=== PATIENT | female | born 1955 | race Caucasian/White ===

== ENCOUNTER 2016-10-24 09:52 | Emergency (ER) | payer SELFPAY ==
[~2016-10-24] VITALS: Ht 160 cm; Wt 70.0 kg
[~2016-10-24 09:52] MED LIST: TYLE500T PO; Z.0.NO CURRENT MEDS
[2016-10-24 09:54] VITALS: BP 158/97; PULSE 95; RESP 12; TEMP 98; O2SAT 98
--- NOTE | 2016-10-24 10:43 | PD ---
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 She is concerned that the stingers are stuck in her skin and her causing her headaches. She denies history of headaches prior to being stung by the bees. Describes her headache as a pressure. Location is bilateral. Rates headache 5/10. Headaches are relieved with aspirin. She took aspirin yesterday for her headache and it went away. Woke up this morning with a headache again. Says her headaches are aggravated by the multiple bee stings and other stings from bugs that she's been stung by at work. Denies focal deficits or weakness. Denies change in vision. Denies change in mentation, slurred speech, confusion, disorientation. Denies fever, chills, nausea, vomiting. Denies allergies. Denies anticoagulants. Denies significant past medical history. No other modifying factors or associated signs and symptoms. PFSH Past Medical History Medical History: Denies Significant Hx Diabetes: No Diminished Hearing: No Immunizations Current: No Tetanus Vaccination: < 5 Years ?: Not Past Surgical History Abdominal Surgery: Yes (ADHESIONS REMOVED BY LAP) Cholecystectomy: Yes Hysterectomy: Yes (PARTIAL) Social History Alcohol Use: No Tobacco Use: No Substance Use: No Allergies-Medications (Allergen,Severity, Reaction): Coded Allergies: No Known Allergies (Verified , 10/24/16) Reported Meds & Prescriptions Reported Meds & Active Scripts Active Ibuprofen 800 Mg Tab 800 Mg PO Q6HR PRN Review of Systems Except as stated in HPI: all other systems reviewed are Neg Physical Exam Narrative GENERAL: Well-nourished, well-developed female patient, in no acute distress SKIN: Warm and dry. HEAD: Atraumatic. Normocephalic. No facial droop noted. Tongue midline. EYES: Pupils equal and round at 3 mm with brisk reaction. No scleral icterus. No injection or drainage. PERRLA. EOMI. ENT: Mucosa pink and moist. Airway patent. NECK: Trachea midline. No lymphadenopathy. CARDIOVASCULAR: Regular rate and rhythm. No murmur appreciated. RESPIRATORY: No accessory muscle use. Clear to auscultation. Breath sounds equal bilaterally. GASTROINTESTINAL: Abdomen soft, non-tender, nondistended. Hepatic and splenic margins not palpable. Bowel sounds are active 4 quadrants. MUSCULOSKELETAL: No obvious deformities. No clubbing. No cyanosis. No edema. NEUROLOGICAL: Awake and alert. Oriented 3. No obvious cranial nerve deficits. Motor grossly within normal limits. Normal speech. No ataxia. No mid -line drift. Normal nose to finger test. Moves all extremities. 5/5 strength to all extremities. PSYCHIATRIC: Appropriate mood and affect; insight and judgment normal. Data Data Last Documented VS Vital Signs Date Time Temp Pulse Resp B/P Pulse Ox O2 Delivery O2 Flow Rate FiO2 10/24/16 09:54 98.0 95 12 158/[address] Brain W/O Iv Contrast(Rout) (10/24/16 ) Ibuprofen (Motrin) (10/24/16 12:15) MDM Medical Decision Making Medical Screen Exam Complete: Yes Emergency Medical Condition: Yes Medical Record Reviewed: Yes Differential Diagnosis Acute headache, medical clearance, tension headache Narrative Course 60-year-old female with intermittent acute headaches for the past few months. Apparently the onset after being stung by 2 bees to her restorationism areas. Neuro exam is unremarkable. Physical exam is unremarkable. Patient reports the headaches are relieved when she takes aspirin. Denies anticoagulants. CT head ordered. 1205: CT head with no acute findings. Ibuprofen administered in the ER. Ibuprofen prescribed for home. Patient is medically cleared and stable for discharge. Discussed reasons to return to the emergency department. Instructed patient to follow up with primary care provider. Patient agrees with treatment plan. The patients vital signs are stable and the patient is stable for outpatient follow-up and treatment. Patient discharged home, stable and in no acute distress. Diagnosis Primary Impression: Acute headache Qualified Code: R51 - Acute nonintractable headache, unspecified headache type Referrals: Primary Care Physician Patient Instructions: Acute Headache (ED), General Instructions Additional Instructions: Ibuprofen or Tylenol as directed and as needed to reduce headache Get plenty of rest: do not over sleep rest and relax in a dark, quiet room as needed Place an ice pack on the back of her neck to reduce head pain as needed Keep a headache diary of what triggers her headaches and what treatment is most effective Avoid identifiable triggers Avoid smoking, alcohol and caffeine consumption Reduce stress Follow-up with primary care provider Follow-up with neurology as needed Return immediately to the emergency department with worsening symptoms Med/Other Pt SpecificInfo: Prescription(s) given Scripts Ibuprofen 800 Mg [id number] Mg PO Q6HR PRN (PAIN) #30 TAB Ref 0 Prov:Rivka Stokes 10/24/16 Disposition: 01 DISCHARGE HOME Condition: Stable Rivka Stokes Oct 24, 2016 10:43
--- NOTE | 2016-10-24 11:37 | RADRPT ---
EXAM DATE/TIME: 10/24/2016 11:10 [facility] COMPARISON: No previous studies available for comparison. INDICATIONS : Worsening headaches over past 10 months. RADIATION DOSE: 33.74 CTDIvol (mGy) MEDICAL HISTORY : None SURGICAL HISTORY : Cholecystectomy. Hysterectomy. ENCOUNTER: Initial ACUITY: 7 - 11 months PAIN SCALE: 5/10 LOCATION: cranial TECHNIQUE: Multiple contiguous axial images were obtained of the head. Using automated exposure control and adj ustment of the mA and/or kV according to patient size, radiation dose was kept as low as reasonably a chievable to obtain optimal diagnostic quality images. FINDINGS: CEREBRUM: The ventricles are normal for age. No evidence of midline shift, mass lesion, hemorrhage or acute in farction. No extra-axial fluid collections are seen. POSTERIOR FOSSA: The cerebellum and brainstem are intact. The 4th ventricle is midline. The cerebellopontine angle i s unremarkable. EXTRACRANIAL: The visualized portion of the orbits is intact. SKULL: The calvaria is intact. No evidence of skull fracture. CONCLUSION: No acute disease. Albaro Morgan MD on October 24, 2016 at 11:35 Board Certified Radiologist. This report was verified electronically.
[2016-10-24] MEDS ORDERED: IBUP800T23 PO (12:02)
[2016-10-24] MEDS ORDERED: IBUPROFEN 800 MG TAB PO ONE (12:15)
== END 2016-10-24 13:03 | disposition home or self-care (01) ==
LOC: NEPB 09:52
DX: R51 Headache (principal)
CPT/HCPCS: 70450

== ENCOUNTER 2017-11-17 15:36 | Emergency (ER) | payer SELFPAY ==
[~2017-11-17] VITALS: Ht 160 cm; Wt 67.0 kg
[~2017-11-17 15:36] MED LIST changes: +IBUP1TAB7 PO; -TYLE500T PO; -Z.0.NO CURRENT MEDS
[2017-11-17 15:40] VITALS: BP 142/87; PULSE 103; RESP 16; TEMP 97.5; O2SAT 98
[2017-11-17] MEDS ORDERED: ACETAMINOPHEN/HYDROcodone 325 MG/5 MG TAB PO ONE (16:00)
--- NOTE | 2017-11-17 16:00 | PD ---
HPI Chief Complaint: Fall Time Seen by Provider: 15:52 Travel History International Travel<30 days: No Contact w/Intl Traveler<30days: No Traveled to known affect area: No History of Present Illness HPI 62-year-old female presents to the emergency department for evaluation after a fall that occurred just prior to arrival. Patient states that she was stepping up a step at work when she fell backwards hitting the concrete. Patient states she did hit her head, but denies any LOC. She reports low back pain, right elbow abrasion and pain. Patient reports no chronic medical problems and takes no prescribed medications. Current pain is 9/10, aching without radiation. Movement exacerbates pain. Moderate severity. Patient does not believe her tetanus immunization is up-to-date. [facility] Past Medical History Medical History: Denies Significant Hx Diabetes: No Diminished Hearing: No Immunizations Current: No Tetanus Vaccination: > 5 Years Influenza Vaccination: No ?: Not Past Surgical History Abdominal Surgery: Yes (ADHESIONS REMOVED BY LAP) Cholecystectomy: Yes Hysterectomy: Yes (PARTIAL) Social History Alcohol Use: No Tobacco Use: No Substance Use: No Allergies-Medications (Allergen,Severity, Reaction): Coded Allergies: No Known Allergies (Verified Adverse Reaction, Unknown, 11/17/17) Reported Meds & Prescriptions Reported Meds & Active Scripts Active No Active Prescriptions or Reported Medications Review of Systems Except as stated in HPI: all other systems reviewed are Neg Physical Exam Narrative GENERAL: Well-nourished, well-developed female patient, ambulatory. Afebrile. SKIN: Focused skin assessment warm/dry. Patient has abrasion to her right posterior elbow. ENT: Mucosa pink and moist. No erythema or exudates. No uvular edema. No uvular , palatal, or tonsillar deviation. Airway patent. Nasal turbinates appear normal without nasal blood, purulent drainage or septal hematoma. Bilateral tympanic membranes are clear without erythema or perforation. HEAD: Normocephalic. EYES: No scleral icterus. No injection or drainage. NECK: Supple, trachea midline. No JVD or lymphadenopathy. CARDIOVASCULAR: Regular rate and rhythm without murmurs, gallops, or rubs. RESPIRATORY: Breath sounds equal bilaterally. No accessory muscle use. Lungs sounds are clear to auscultation. GASTROINTESTINAL: Abdomen soft, non-tender, nondistended. MUSCULOSKELETAL: No cyanosis, or edema. BACK: Nontender without obvious deformity. No CVA tenderness. Patient has tenderness to palpation over midline lumbar spine. Data Data Last Documented VS Vital Signs Date Time Temp Pulse Resp B/P (MAP) Pulse Ox O2 Delivery O2 Flow Rate FiO2 11/17/17 15:40 97.5 103 16 142/87 (105) [address] Brain W/O Iv Contrast(Rout) (11/17/17 ) Ct Cerv Spine W/O Contrast (11/17/17 ) Elbow, Complete (4 Vws) (11/17/17 ) Spine, Lumbar - Ltd (Ap & Lat) (11/17/17 ) Acetamin-Hydrocod 325-5 Mg ([place] 5-325 (11/17/17 16:00) Tetanus/Diphtheria Tox Adult (Tetanus/Di (11/17/17 17:30) Ct Lumb Spine W/O Contrast (11/17/17 ) MDM Medical Decision Making Medical Screen Exam Complete: Yes Emergency Medical Condition: Yes Medical Record Reviewed: Yes Interpretation(s) x-ray right elbow CONCLUSION: Unremarkable examination of the right elbow. X-ray lumbar spine CONCLUSION: Degenerative disc disease L4-5 and facet arthritic changes at L5-S1 and L4-5. The cavity and mildly a tear wedging superior vertebral endplate of L1 which may be remote. Correlation with clinical history recommended. In the appropriate clinical situation this could be further evaluated with CT scan Ct brain CONCLUSION: 1. Midline high occipital scalp thickening; no skull fracture seen. 2. No acute findings in the brain. CT cervical spine CONCLUSION: Reversal of the upper cervical lordosis with multilevel listhesis. Moderate severity discogenic degenerative changes C4-7. No fracture seen. May consider performing flexion and extension views to assess stability of the cervical alignment. CT lumbar spine - CONCLUSION: 1. Multiple sclerotic lesions involving the right pedicle of L1, left sacral ala , and left medial iliac bone. Cannot exclude osteoblastic metastatic disease. May consider performing an outpatient whole-body bone scan. 2. Compression deformity of the L1 vertebral body and prominent Schmorl's node superior endplate without evidence of acute fracture line. 3. Moderate severity facet joint hypertrophy at L4-5 without evidence of pars defect. Differential Diagnosis Closed head injury versus intracranial abnormality versus cervical strain versus fracture versus elbow abrasion versus contusion versus fracture Narrative Course 62-year-old female presents to the emergency department for evaluation after a fall that occurred just prior to arrival. CT of the brain and cervical spine are ordered and pending. X-ray of the lumbar spine, right elbow are ordered and pending. Patient is given [place] 5/325 mg by mouth for pain. CT of the brain shows no acute findings. Ct of the cervical spine shows no acute fracture. X-ray of the lumbar spine shows degenerative disc disease, possible superior vertebral endplate of L1 fracture. X-ray of the right elbow is unremarkable. CT of the lumbar spine is ordered and pending due to abnormal x-ray. CT lumbar spine shows multiple sclerotic lesions involving the right pedicle of L1, left sacral ala, and left medial iliac bone, cannot exclude osteoblastic metastatic disease, recommends outpatient whole-body bone scan. Compression deformity of L1 vertebral body and prominent Schmorl's node superior end plate without evidence of acute fracture line. Moderate severity facet joint hypertrophy at L4 to 5 without evidence of pars defect. I discussed the findings with the patient gave her copy of the report. She is to follow-up with the [facility] [[email or web address]] as she does not have insurance at this time. She verbalizes agreement. She'll be provided TLSO brace for compression fracture. Patient will be discharged a short-term prescription for [place] for pain. Diagnosis Primary Impression: Compression fracture of L1 lumbar vertebra Qualified Codes: S32.010A - Wedge compression fracture of first lumbar vertebra, initial encounter for closed fracture Additional Impression: Closed head injury Qualified Codes: S09.90XA - Unspecified injury of head, initial encounter Referrals: [facility] 2 days Patient Instructions: General Instructions, Head Injury (ED), Vertebral Compression Fracture (ED) Additional Instructions: Clean abrasion to right elbow twice daily with soap and water and apply over-the -counter antibiotic ointment. Keep clean and dry. Follow-up with the [facility] [[email or web address]] regarding your abnormal CT scan of the lumbar spine. Call on Sunday to make an appointment. Wear TLSO brace. Take [place] as directed as needed for pain. Caution this can make you drowsy so do not drive after taking. Return to the emergency department for any acute worsening of symptoms. Med/Other Pt SpecificInfo: Prescription(s) given Scripts Hydrocodone-Acetaminophen ([place]) 5 Mg-325 Mg Tab 1 TAB PO Q6H Y for PAIN, #12 TAB 0 Refills Prov: Radha eYpez 11/17/17 Disposition: 01 DISCHARGE HOME Condition: Stable Radha Yepez Nov 17, 2017 16:00
--- NOTE | 2017-11-17 17:29 | RADRPT ---
EXAM DATE/TIME: 11/17/2017 17:05 [facility] COMPARISON: No previous studies available for comparison. INDICATIONS : Fell, has right elbow pain MEDICAL HISTORY : None. SURGICAL HISTORY : None. ENCOUNTER: Initial ACUITY: 1 day PAIN SCORE: 7/10 LOCATION: Right elbow FINDINGS: Multiple view examination of the right elbow demonstrates no soft tissue swelling, joint effusion, or fracture. The osseous structures are in normal alignment. Bony mineralization is normal. CONCLUSION: Unremarkable examination of the right elbow. Aidan Brambila MD on November 17, 2017 at 17:26 Board Certified Radiologist. This report was verified electronically.
[2017-11-17] MEDS ORDERED: TETANUS/DIPHTHERIA TOXOID ADULT 0.5 ML VIAL IM ONE (17:30)
--- NOTE | 2017-11-17 17:32 | RADRPT ---
EXAM DATE/TIME: 11/17/2017 17:11 [facility] COMPARISON: No previous studies available for comparison. INDICATIONS : Fell, has low back pain MEDICAL HISTORY : None. SURGICAL HISTORY : None. ENCOUNTER: Initial ACUITY: 1 day PAIN SCORE: 5/10 LOCATION: Bilateral low back FINDINGS: There are vascular calcifications in the aorta without aneurysm formation clips in the right upper qu adrant prior cholecystectomy. Lumbar spine reveals normal alignment with narrowing of the L4-5 disc s pace consistent with degenerative disc disease and facet arthritic changes L4-5 and L5-S1. There is c oncavity of superior vertebral endplate and mild anterior wedging of L1 without cortical break identi fied and this is primarily right sided. This may represent a remote compression. CONCLUSION: Degenerative disc disease L4-5 and facet arthritic changes at L5-S1 and L4-5. The cavity and mildly a tear wedging superior vertebral endplate of L1 which may be remote. Correlation with clinical histor y recommended. In the appropriate clinical situation this could be further evaluated with CT scan Aidan Brambila MD on November 17, 2017 at 17:27 Board Certified Radiologist. This report was verified electronically.
--- NOTE | 2017-11-17 18:02 | RADRPT ---
EXAM DATE/TIME: 11/17/2017 17:32 [facility] COMPARISON: CT BRAIN W/O CONTRAST, October 24, 2016, 11:10. INDICATIONS : Tripped and fell. hit the back of her head. RADIATION DOSE: 50.19 CTDIvol (mGy) MEDICAL HISTORY : None SURGICAL HISTORY : Cholecystectomy. Laperoscopy, Partial hysterectomy. ENCOUNTER: Initial ACUITY: 1 day PAIN SCALE: 6/10 LOCATION: occipital TECHNIQUE: Multiple contiguous axial images were obtained of the head. Using automated exposure control and adj ustment of the mA and/or kV according to patient size, radiation dose was kept as low as reasonably a chievable to obtain optimal diagnostic quality images. DICOM format image data is available electro nically for review and comparison. FINDINGS: CEREBRUM: The ventricles are normal for age. No evidence of midline shift, mass lesion, hemorrhage or acute in farction. Physiologic calcification in the basal ganglia. No extra-axial fluid collections are seen . POSTERIOR FOSSA: The cerebellum and brainstem are intact. The 4th ventricle is midline. The cerebellopontine angle i s unremarkable. EXTRACRANIAL: The visualized portion of the orbits is intact. SKULL: Mild right convexity midline occipital scalp swelling measuring 12 mm; no radiopaque foreign bodies. The calvaria is intact. No evidence of skull fracture. CONCLUSION: 1. Midline high occipital scalp thickening; no skull fracture seen. 2. No acute findings in the brain. Rob Landaverde MD on November 17, 2017 at 17:56 Board Certified Radiologist. This report was verified electronically.
--- NOTE | 2017-11-17 18:10 | RADRPT ---
EXAM DATE/TIME: 11/17/2017 17:32 [facility] COMPARISON: No previous studies available for comparison. INDICATIONS : Fell hitting her head on the pavement. RADIATION DOSE: 25.35 CTDIvol (mGy) MEDICAL HISTORY : None SURGICAL HISTORY : Cholecystectomy. Laperescopy, partial hysterectomy. ENCOUNTER: Initial ACUITY: 1 day PAIN SCALE: 6/10 LOCATION: neck TECHNIQUE: Volumetric scanning of the cervical spine was performed. Multiplanar reconstructions in the sagittal, coronal and oblique axial planes were performed. Using automated exposure control and adjustment o f the mA and/or kV according to patient size, radiation dose was kept as low as reasonably achievable to obtain optimal diagnostic quality images. DICOM format image data is available electronically f or review and comparison. FINDINGS: Reversal of the cervical lordosis from C2-C4. Minimal anterolisthesis of C2 with respect to C3 and C 3 respect to C4 is probably positional. Moderate narrowing of the C4-5 C5-6 and C6-7 interspaces wit h prominent anterior osteophytes. There is also posterior arthritis present at C5-6 and C6. The pos terior elements are in normal alignment without evidence of locked or perched facets. Mild curvature of the cervical spine convex towards the left. The atlantoaxial articulation is intact. Prevertebr al soft tissues are normal. 1.3 cm low-density nodule in the left thyroid. C2-C3: No fracture seen. The neural foramina are patent. C3-C4: No fracture seen. The neural foramina are patent. C4-C5: No fracture seen. The neural foramina are patent. C5-C6: No fracture seen. Mild right-sided bony neural foraminal stenosis. C6-C7: No fracture seen. Moderate left-sided neural foraminal stenosis. C7-T1: No fracture seen. The neural foramina are patent. CONCLUSION: Reversal of the upper cervical lordosis with multilevel listhesis. Moderate severity discogenic dege nerative changes C4-7. No fracture seen. May consider performing flexion and extension views to ass ess stability of the cervical alignment. Rob Landaverde MD on November 17, 2017 at 18:02 Board Certified Radiologist. This report was verified electronically.
--- NOTE | 2017-11-17 19:35 | RADRPT ---
EXAM DATE/TIME: 11/17/2017 18:58 [facility] COMPARISON: No previous studies available for comparison. INDICATIONS : Trauma. Fall. Low back pain. RADIATION DOSE: 39.41 CTDIvol (mGy) MEDICAL HISTORY : None SURGICAL HISTORY : Cholecystectomy. Hysterectomy. ENCOUNTER: Initial ACUITY: 1 day PAIN SCALE: 6/10 LOCATION: Bilateral low back. TECHNIQUE: Volumetric scanning of the lumbar spine was performed. Multiplanar reconstructions in the sagittal, coronal and oblique axial planes were performed. Using automated exposure control and adjustment of the mA and/or kV according to patient size, radiation dose was kept as low as reasonably achievable t o obtain optimal diagnostic quality images. DICOM format image data is available electronically for review and comparison. FINDINGS: There is normal alignment of the vertebral bodies of the lumbar spine. There is a 15% loss of height of the L1 vertebral body and there is a concavity of the superior endplate on the right with sclerot ic margins suggesting a large Schmorl's node. No fracture line seen. The pedicles are intact. Ther e is an 5 mm densely sclerotic lesion in the right pedicle. In the left sacral ala, there is a 9 mm flocculent calcification. In the left medial iliac bone, there is a rounded sclerotic lesion measuri ng 9 mm.. T12-L1: The thecal sac has a normal diameter. No evidence of disc bulge or protrusion. The neural foramina are patent bilaterally. L1-L2: The thecal sac has a normal diameter. No evidence of disc bulge or protrusion. The neural foramina are patent bilaterally. L2-L3: The thecal sac has a normal diameter. No evidence of disc bulge or protrusion. The neural foramina are patent bilaterally. L3-L4: The thecal sac has a normal diameter. No evidence of disc bulge or protrusion. The neural foramina are patent bilaterally. L4-L5: Broad-based bulging of the disc causes flattening of the ventral margin of the thecal sac. There is moderate bilateral facet joint hypertrophy with vacuum phenomenon. L5-S1: Broad-based bulging of the disc without significant deformity of the thecal sac. The neural foramen remain patent. CONCLUSION: 1. Multiple sclerotic lesions involving the right pedicle of L1, left sacral ala, and left medial nick ac bone. Cannot exclude osteoblastic metastatic disease. May consider performing an outpatient who e-body bone scan. 2. Compression deformity of the L1 vertebral body and prominent Schmorl's node superior endplate with out evidence of acute fracture line. 3. Moderate severity facet joint hypertrophy at L4-5 without evidence of pars defect. Rob Landaverde MD on November 17, 2017 at 19:27 Board Certified Radiologist. This report was verified electronically.
[2017-11-17] MEDS ORDERED: NORC5TAB PO (19:50)
== END 2017-11-17 20:06 | disposition home or self-care (01) ==
LOC: PHEFT 15:36
DX: S32.010A Wedge compression fracture of first lumbar vertebra, initial encounter for closed fracture (principal); S09.90XA Unspecified injury of head, initial encounter; Z23 Encounter for immunization; W01.0XXA Fall on same level from slipping, tripping and stumbling without subsequent striking against object, initial encounter
CPT/HCPCS: 70450; 72100; 72125; 72131; 73080; 90471; 90714; 99284; L1050